=== PATIENT | female | born 1990 | race Caucasian/White ===

== ENCOUNTER 2024-05-16 09:37 | Inpatient (IN) | payer OTHER ==
[~2024-05-16 09:37] MED LIST: Bupivacaine 0.25% 10 ML SDV ONE
[2024-05-16] MEDS ORDERED: Sodium Chloride 0.9% 10 ML Syringe FLUSH PRN (12:10)
[2024-05-16] MEDS ORDERED: Nalbuphine 10 MG/1 ML Vial IVPUSH PRN (12:10)
[2024-05-16 12:43] LABS: BASOPHILS PERCENT AUTO 0.5 % (0.0-1.0); EOSINOPHILS ABSOLUTE AUTO 0.1 K/mm3 (0.0-0.4); EOSINOPHILS PERCENT AUTO 1.3 % (0.0-6.0); HEMATOCRIT 35.1 % (37.0-47.0); HEMOGLOBIN 11.5 gm/dl (12.0-16.0); IMMATURE GRAN ABSOLUTE AUTO 0.08 K/mm3 (0.00-0.05); LYMPHOCYTES ABSOLUTE AUTO 1.4 K/mm3 (1.0-4.8); LYMPHOCYTES PERCENT AUTO 16.5 % (24.0-44.0); MEAN CORPUSCULAR HEMOGLOBIN 28.9 pg (28.0-32.0); MEAN CORPUSCULAR HGB CONC 32.8 g/dl (32.0-36.0); MEAN CORPUSCULAR VOLUME 88.2 fl (83.0-99.0); MEAN PLATELET VOLUME 13.7 fl (9.4-12.3); MONOCYTES ABSOLUTE AUTO 0.5 K/mm3 (0.0-0.8); MONOCYTES PERCENT AUTO 6.4 % (0.0-8.0); NEUTROPHILS ABSOLUTE AUTO 6.2 K/mm3 (1.8-7.7); NEUTROPHILS PERCENT AUTO 74.3 % (41.0-71.0); PLATELET COUNT,PLT 123 K/mm3 (150-400); RED BLOOD CELL COUNT 3.98 M/mm3 (4.10-5.30); WHITE BLOOD CELL COUNT,WBC 8.29 K/mm3 (3.9-11.3)
[2024-05-16] MEDS: Misoprostol 25 MCG (1/4 of 100 MCG) Tab VAG SCH (13:05)
[2024-05-16] MEDS ORDERED: diphenhydrAMINE 50 MG/ML SDV IVPUSH PRN (13:12)
[2024-05-16] MEDS ORDERED: ePHEDrine 50 MG/ML SDV IVPUSH PRN (13:12)
[2024-05-17] MEDS: Lactated Ringers 1,000 ML IV SCH (01:33)
[2024-05-17] MEDS: Oxytocin/0.9 % Sodium Chloride 30 UNIT/500 ML BAG IV SCH (01:33)
[2024-05-17] MEDS: fentaNYL 100 MCG/2 ML SDV EPIDUR PRN (02:03)
[2024-05-17] MEDS: Bupivacaine/fentaNYL/NS 100 ML Bag EPIDUR PRN (02:04)
[2024-05-17] MEDS: Ondansetron 4 MG/2 ML SDV IVPUSH PRN (08:05)
[2024-05-17] MEDS: Lidocaine 1% 50 ML MDV INJECT PRN (09:44)
[2024-05-17] MEDS ORDERED: Acetaminophen 325 MG Tab PO PRN (11:09)
[2024-05-17] MEDS ORDERED: Simethicone 80 MG Tab.Chew PO PRN (11:09)
[2024-05-17] MEDS: Benzocaine/Menthol 20%-0.5% Spray 78 GM Cannister TOP PRN (11:48)
[2024-05-17] MEDS: Witch Hazel Medicated Pads 40/Jar TOP PRN (11:48)
[2024-05-17] MEDS: Ibuprofen 600 MG Tab PO SCH (11:49)
[2024-05-17] MEDS: Famotidine 20 MG Tab PO SCH (21:04)
[2024-05-17] MEDS: Sodium Chloride 0.9% 10 ML Syringe FLUSH SCH (21:07)
[2024-05-18 08:32] LABS: HEMATOCRIT 30.5 % (37.0-47.0); MEAN CORPUSCULAR HEMOGLOBIN 29.2 pg (28.0-32.0); MEAN CORPUSCULAR HGB CONC 32.5 g/dl (32.0-36.0); MEAN PLATELET VOLUME 13.8 fl (9.4-12.3); PLATELET COUNT,PLT 103 K/mm3 (150-400); RED BLOOD CELL COUNT 3.39 M/mm3 (4.10-5.30); WHITE BLOOD CELL COUNT,WBC 10.19 K/mm3 (3.9-11.3)
[2024-05-18 08:34] LABS: HEMOGLOBIN 9.9 gm/dl (12.0-16.0)
[2024-05-18] MEDS: Loratadine 10 MG Tab PO SCH (09:34)
[2024-05-18] MEDS: Ferrous Sulfate 324 MG Tab.EC PO SCH (09:34)
[2024-05-18] MEDS: Prenatal Multivitamin with Calcium/Folic Acid/Iron Tab PO SCH (09:35)
[2024-05-18] MEDS: Docusate Sodium 100 MG Cap PO PRN (18:03)
== END 2024-05-19 12:20 | disposition home or self-care (01) | DRG 807 ==
LOC: JD.OB 09:37 → OBSVTOIN 05-17 09:37 → JD.OB 05-17 09:37
PROVIDERS: ADMIT Family Medicine; ATTEND Family Medicine
PROC: 10E0XZZ Delivery of Products of Conception, External Approach (ICD-10-PCS; principal; 2024-05-17)
PROC: 0KQM0ZZ Repair Perineum Muscle, Open Approach (ICD-10-PCS; 2024-05-17)
PROC: 3E033VJ Introduction of Other Hormone into Peripheral Vein, Percutaneous Approach (ICD-10-PCS; 2024-05-17)
PROC: 3E0P7VZ Introduction of Hormone into Female Reproductive, Via Natural or Artificial Opening (ICD-10-PCS; 2024-05-17)
PROC: 3E0R3BZ Introduction of Anesthetic Agent into Spinal Canal, Percutaneous Approach (ICD-10-PCS; 2024-05-17)
PROC: 00HU33Z Insertion of Infusion Device into Spinal Canal, Percutaneous Approach (ICD-10-PCS; 2024-05-17)
DX: O24.420 Gestational diabetes mellitus in childbirth, diet controlled (principal); Z37.0 Single live birth; J30.89 Other allergic rhinitis; O99.52 Diseases of the respiratory system complicating childbirth; Z3A.39 39 weeks gestation of pregnancy
CPT/HCPCS: 36415; 51702; 59025; 59409; 82947; 85025; 85027; 86592; A9270-GY; J0665; J2001; J2405; J3010; J3490; J7120; J7999